=== PATIENT | male | born 1960 | race Caucasian/White ===

== ENCOUNTER 2017-09-03 06:25 | Day surgery (SDC) | payer BC ==
[2017-09-03] MEDS: LR 1,000 ML IV (07:12)
[2017-09-03] MEDS ORDERED: LIDOCAINE 2% INJ 100 MG/5 ML SDV (FOR ANES.) As Ordered ×2 (07:13→07:15)
[2017-09-03] MEDS ORDERED: MIDAZOLAM INJ 2 MG/2 ML VIAL (J2250) As Ordered (07:13)
[2017-09-03] MEDS ORDERED: PROPOFOL 200 MG/20 ML VIAL As Ordered ×5 (07:13→09:09)
[2017-09-03] MEDS ORDERED: fentaNYL 100 MCG/2 ML INJECTION (J3010) As Ordered (07:13)
[2017-09-03] MEDS ORDERED: KETAMINE HCL 200 MG/20 ML VIAL As Ordered (07:55)
[2017-09-03] MEDS: BUPIVACAINE HCL 0.25% 30 ML VIAL As Ordered (08:02)
[2017-09-03] MEDS: BUPIVACAINE HCL 0.5% 30 ML VIAL As Ordered (09:24)
[2017-09-03] MEDS: LIDOCAINE 1% SDV INJ 30 ML VIAL As Ordered (09:44)
== END 2017-09-03 10:47 | disposition home or self-care (01) ==
LOC: M SDC 06:25
DX: D17.1 Benign lipomatous neoplasm of skin and subcutaneous tissue of trunk (principal); I10 Essential (primary) hypertension; Z79.899 Other long term (current) drug therapy
CPT/HCPCS: 21933

== ENCOUNTER → 2019-05-12 | Outpatient (REF) | payer BC ==
[~2019-05-12] MED LIST: ASPI81TA26 PO; LISI10TA4; NIAC250T3 PO; ZINCLOZ9 PO
[2019-05-12 19:40] LABS: BASO % 0.2 % (0.0-1.0); EOS # 0.2 10^3/uL (0.0-0.5); EOS % 2.5 % (0.0-3.0); HEMATOCRIT 46.9 % (42.0-52.0); HEMOGLOBIN 16.1 g/dl (13.5-17.5); LYMPH # 1.3 10^3/uL (1.5-5.0); LYMPH % 14.7 % (24.0-44.0); MEAN CORPUSCULAR HEMOGLOBIN 32.7 pg (27.0-33.0); MEAN CORPUSCULAR HGB CONC 34.3 g/dl (32.0-36.5); MEAN CORPUSCULAR VOLUME 95.1 fl (80.0-96.0); MONO # 0.6 10^3/uL (0.0-0.8); MONO % 6.3 % (0.0-5.0); NEUTROPHILS # 6.7 10^3/uL (1.5-8.5); PLATELET COUNT, AUTOMATED 242 10^3/uL (150-450); RED BLOOD COUNT 4.93 10^6/uL (4.30-6.10); WHITE BLOOD COUNT 8.8 10^3/uL (4.0-10.0)
[2019-05-12 20:26] LABS: ALBUMIN 4.2 GM/DL (3.2-5.2); ALT/SGPT 40 U/L (12-78); BILIRUBIN,TOTAL 0.6 MG/DL (0.2-1.0); BLOOD UREA NITROGEN 19 MG/DL (7-18); CALCIUM LEVEL 10.1 MG/DL (8.8-10.2); CARBON DIOXIDE LEVEL 30 MEQ/L (21-32); CHLORIDE LEVEL 102 MEQ/L (98-107); CHOLESTEROL LEVEL 181 MG/DL (<200); CHOLESTEROL RISK RATIO 4.414 (<5); CREATININE FOR GFR 0.97 MG/DL (0.70-1.30); GLOMERULAR FILTRATION RATE > 60.0 (>49); GLUCOSE, FASTING 79 MG/DL (70-100); HDL CHOLESTEROL 41 MG/DL (>40); LDL CHOLESTEROL 94 MG/DL (<100); NON-HDL-C 140 MG/DL; POTASSIUM SERUM 4.2 MEQ/L (3.5-5.1); SODIUM LEVEL 139 MEQ/L (136-145); TOTAL PROTEIN 7.5 GM/DL (6.4-8.2); TRIGLYCERIDES LEVEL 231 MG/DL (<150)
== END ==
LOC: M SFHCADAM 15:19
PROVIDERS: ATTEND Physician Assistant Medical
DX: I10 Essential (primary) hypertension (principal); F17.290 Nicotine dependence, other tobacco product, uncomplicated; E83.119 Hemochromatosis, unspecified; K42.9 Umbilical hernia without obstruction or gangrene

== ENCOUNTER → 2019-06-26 | Outpatient (CLI) | payer BC ==
--- NOTE | 2019-06-26 20:53 | ECGEPIP ---
[facility] Test Date: 2019-06-26 Pat Name: SAW MAYFIELD Department: Room: - Gender: Male Sanitation Associate: EVER : 1960 Requested By: Fantasma Torrez Order Number: [id number] Reading MD: Asia Lemus Measurements Intervals Sullivan Rate: 68 P: 28 NH: 160 QRS: 34 QRSD: 104 T: 45 QT: 399 QTc: 424 Interpretive Statements SINUS RHYTHM NO PRIOR Electronically Signed on 06-26-2019 20:52:56 EST by Asia Lemus
== END ==
LOC: M EKG 09:36
PROVIDERS: ATTEND Anesthesiology
DX: I10 Essential (primary) hypertension (principal)

== ENCOUNTER 2019-06-29 09:03 | Day surgery (SDC) | payer BC ==
[~2019-06-29] VITALS: Ht 188 cm; Wt 121.3 kg
[~2019-06-29 09:03] MED LIST changes: +LIDOCAINE 2% INJ 100 MG/5 ML SDV (FOR ANES.) As Ordered ONE; +LR 1,000 ML IV ONE; +MIDAZOLAM INJ 2 MG/2 ML VIAL (J2250) As Ordered ONE; +ONDANSETRON 4MG/2ML VIAL (J2405) As Ordered ONE; +ROCURONIUM BROMIDE 50 MG/5 ML VIAL As Ordered ONE; +SUGAMMADEX SODIUM 500 MG/5 ML VIAL (BRIDION) As Ordered ONE; +dexameTHASONE 4 MG/ML 1ML VIAL (J1100) As Ordered ONE; +fentaNYL 250 MCG/5 ML INJECTION (J3010) As Ordered ONE; +propofoL 200 MG/20 ML VIAL As Ordered ONE
[2019-06-29] MEDS ORDERED: BUPIVACAINE HCL 0.25% 30 ML VIAL As Ordered ONE (11:29)
[2019-06-29] MEDS ORDERED: ACETAMINOPHEN 1000MG 100ML IV BTL (OFIRMEV) (J0131 PER 10MG) As Ordered ONE (12:19)
[2019-06-29] MEDS ORDERED: fentaNYL 100 MCG/2 ML INJECTION (J3010) IV PRN (15:00)
[2019-06-29] MEDS ORDERED: IBUPROFEN 600 MG TAB PO PRN (15:00)
[2019-06-29] MEDS ORDERED: NORCO, ANEXSIA 5/325MG TABLET (HYDROcodone/ACETAMINOPHEN) PO PRN (15:00)
[2019-06-29] MEDS ORDERED: ONDANSETRON 4MG/2ML VIAL (J2405) IV PRN (15:00)
[2019-06-29] MEDS ORDERED: LR 1,000 ML IV SCH (15:00)
[2019-06-29] MEDS ORDERED: oxyCODONE 5MG TAB PO PRN (15:00)
[2019-06-29] MEDS ORDERED: ACETAMINOPHEN TAB 650MG DOSE (2X325MG) PO PRN (15:00)
[2019-06-29 16:15] VITALS: BP 131/75
--- NOTE | 2019-06-30 13:07 | RO ---
DATE OF PROCEDURE: 06/29/2019 PREOPERATIVE DIAGNOSIS: Umbilical hernia. POSTOPERATIVE DIAGNOSIS: Incarcerated umbilical hernia. PROCEDURE PERFORMED: Robotic-assisted laparoscopic repair of incarcerated umbilical hernia with Parietex mesh. SURGEON: Dr. Xiong TRUCKING MANAGER: KHLOE Hinkle who was essential for management of the robotic instruments, passage of mesh and sutures and assistance with closure of the abdominal incisions. ANESTHESIA: General. INDICATIONS FOR PROCEDURE: Patient is a 58-year-old man with a history of a small bulge at the umbilicus. He is anticipating increasing his activity and trying to get back into shape and is concerned about the small hernia that is present. He also has a degree of diastasis recti present and he is now for a robotic-assisted laparoscopic repair of his hernia with mesh. OPERATIVE PROCEDURE: The patient was brought to the operating room and placed supine on the operating table. He was placed under general endotracheal anesthesia. TEDs and sequentials were utilized. The patient's abdomen was prepped and draped in a sterile fashion. 0.25% Marcaine was infiltrated at each of the trocar sites as needed. A short transverse incision was made in the lateral left abdomen at about the level of the umbilicus. A Veress needle was inserted and after positive hanging drop test, the abdomen was insufflated with carbon dioxide gas. After insufflating the abdomen, a 5 mm scope was placed through an 8 mm robotic port and this was advanced through the incision without difficulty. Initial examination showed a small frond of omentum protruding up into his umbilical hernia. This was adhesed in place. There was a fairly thick layer of preperitoneal fat in the area around and inferior to the umbilicus. A second 8 mm port was placed approximately 10 cm superior to the first and another was placed approximately 10 cm inferior to the first. The patient was tilted to a slight Trendelenburg position to level of the abdomen internally. The patient cart of the [employer] XI system was brought into position and the camera port was docked. Targeting took place and a bipolar cautery and a cauterizing scissor were inserted through the other two ports. I then moved to the control console to proceed with the surgery. I created a peritoneal flap beginning approximately 5-6 cm to the left of the midline. The peritoneum with the underlying preperitoneal fat was elevated off of the fascia. Dissection proceeded to the level of the umbilicus where the peritoneum was peeled from within the hernia defect. The primary defect was about 1.5 to 2 cm in size and there was of lobule of preperitoneal fat incarcerated within this. which was reduced. There were also two smaller adjacent fascial defects just above the primary defect. Each of these was perhaps a centimeter in size and these were from the main defect only by a perhaps 5 mm bridge of residual fibrous tissue. These also had entrapped fat and this was reduced. The preperitoneal dissection was then completed by extending across the midline and freeing the fascia all the way down to the semilunar line. I elected to attempt closure of the defects. It was clear that there would be some tension on the closure because the two defects were only by a small area. I incised the tissues just above the level of the fascia, working through each of the fascial defects, and I connected two smaller superior defects by incising between them. The pressure within the abdomen was reduced to approximately 10 mmHg. A 1-0 Stratafix suture was inserted and this was used to suture the larger defect trying to utilize as much of the fascia as possible that had extended up slightly into the defect to allow closure with slightly less tension. This closure was begun on the right side and then worked to the left and then working from [id number] the same suture was carried across, closing the superior defect. Because both defects were sutured to the thin band of tissue which had them, there was some tension on this area as anticipated. I then selected a 12-cm round Parietex patch. This was inserted and nicely covered the area of the sutured defects with a broad overlap. I had noted in clearing the fascia superiorly that there were at least two small transverse weaknesses in the fascia, no more than a centimeter in length and a few millimeters in width. This patch also nicely covered these identified areas. The patch was sutured first transversely and then circumferentially with 2-0 V-Loc sutures. This created a nice application of the mesh over the area. The peritoneum was then closed with another 2-0 V-Loc. While completing the closure and suturing of the mesh, the abdominal pressure was reduced to 8 mmHg. When the peritoneal closure was nearly complete, the pressure was reduced further to try to a prevent sealing large amount of gas anterior to the peritoneal closure. The robotic instruments were then removed and the abdomen deflated. The robot was undocked and the ports removed and the three small incisions were closed with buried 4-0 Vicryl and Steri-Strips. Light dressings were applied. The patient tolerated the procedure well without apparent complication. The mesh utilized was a 12-cm round Parietex patch, reference code [id number] and lot number [id number]. The patient was awakened in the operating room, extubated and moved to the recovery room in stable condition.
== END 2019-06-29 16:15 | disposition home or self-care (01) ==
LOC: M SDC 09:03
PROVIDERS: ATTEND Surgery
DX: K42.0 Umbilical hernia with obstruction, without gangrene (principal); I10 Essential (primary) hypertension; Z87.891 Personal history of nicotine dependence; E66.09 Other obesity due to excess calories; Z79.899 Other long term (current) drug therapy
CPT/HCPCS: 49653; C1781; J0131; J1100; J2250; J2405; J3010

== ENCOUNTER → 2022-11-03 | Outpatient (REF) | payer OTHER ==
[~2022-11-03] MED LIST changes: -LIDOCAINE 2% INJ 100 MG/5 ML SDV (FOR ANES.) As Ordered ONE; +LISI10TA22; -LISI10TA4; -LR 1,000 ML IV ONE; -MIDAZOLAM INJ 2 MG/2 ML VIAL (J2250) As Ordered ONE; -ONDANSETRON 4MG/2ML VIAL (J2405) As Ordered ONE; -ROCURONIUM BROMIDE 50 MG/5 ML VIAL As Ordered ONE; -SUGAMMADEX SODIUM 500 MG/5 ML VIAL (BRIDION) As Ordered ONE; -dexameTHASONE 4 MG/ML 1ML VIAL (J1100) As Ordered ONE; -fentaNYL 250 MCG/5 ML INJECTION (J3010) As Ordered ONE; -propofoL 200 MG/20 ML VIAL As Ordered ONE
[2022-11-03 14:43] LABS: BASO % 0.5 % (0.0-1.0); EOS # 0.1 10^3/uL (0.0-0.5); EOS % 1.9 % (0.0-3.0); HEMATOCRIT 47.5 % (42.0-52.0); HEMOGLOBIN 15.9 g/dl (13.5-17.5); LYMPH # 2.3 10^3/uL (1.5-5.0); LYMPH % 36.1 % (24.0-44.0); MEAN CORPUSCULAR HEMOGLOBIN 32.1 pg (27.0-33.0); MEAN CORPUSCULAR HGB CONC 33.5 g/dl (32.0-36.5); MONO # 0.5 10^3/uL (0.0-0.8); MONO % 7.2 % (2.0-8.0); NEUTROPHILS # 3.4 10^3/uL (1.5-8.5); PLATELET COUNT, AUTOMATED 231 10^3/uL (150-450); RED BLOOD COUNT 4.95 10^6/uL (4.30-6.10); WHITE BLOOD COUNT 6.4 10^3/uL (4.0-10.0)
[2022-11-03 14:53] LABS: ALBUMIN 3.9 G/DL (3.2-5.2); ALKALINE PHOSPHATASE 69 U/L (46-116); ALT/SGPT 30 U/L (7.0-40); AST/SGOT 12 U/L (<34); BILIRUBIN,TOTAL 0.7 MG/DL (0.3-1.2); BLOOD UREA NITROGEN 17 MG/DL (9-23); CALCIUM LEVEL 10.4 MG/DL (8.3-10.6); CARBON DIOXIDE LEVEL 28 MMOL/L (20-31); CHLORIDE LEVEL 104 MMOL/L (98-107); CHOLESTEROL LEVEL 173 MG/DL (<200); CHOLESTEROL RISK RATIO 3.72 (<5); CREATININE FOR GFR 1.01 MG/DL (0.70-1.30); GLOMERULAR FILTRATION RATE > 60.0 (>49); GLUCOSE, FASTING 79 MG/DL (74-106); HDL CHOLESTEROL 46.5 MG/DL (>40); LDL CHOLESTEROL 105.3 MG/DL (<100); NON-HDL-C 126.5 MG/DL; POTASSIUM SERUM 4.7 MMOL/L (3.5-5.1); SODIUM LEVEL 138 MMOL/L (136-145); TOTAL PROTEIN 6.7 G/DL (5.7-8.2); TRIGLYCERIDES LEVEL 106 MG/DL (<150)
[2022-11-03 14:55] LABS: THYROID STIMULATING HORMONE 2.422 uIU/ML (0.55-4.78)
== END ==
LOC: M SFHCADAM 07:35
PROVIDERS: ATTEND Physician Assistant Medical
DX: I10 Essential (primary) hypertension (principal); F17.290 Nicotine dependence, other tobacco product, uncomplicated; E83.119 Hemochromatosis, unspecified; E66.01 Morbid (severe) obesity due to excess calories

== ENCOUNTER 2024-06-21 17:54 | Emergency (ER) | payer MEDICARE, OTHER ==
[~2024-06-21] VITALS: Ht 190.5 cm; Wt 125.7 kg
[2024-06-21] MEDS ORDERED: IBUP-1022 PO (18:22)
[2024-06-21 19:48] LABS: BASO % 0.3 % (0.0-1.0); EOS # 0.1 10^3/uL (0.0-0.5); EOS % 1.7 % (0.0-3.0); HEMATOCRIT 46.1 % (42.0-52.0); HEMOGLOBIN 16.4 g/dl (13.5-17.5); LYMPH # 1.5 10^3/uL (1.5-5.0); MEAN CORPUSCULAR HGB CONC 35.6 g/dl (32.0-36.5); MONO # 0.5 10^3/uL (0.0-0.8); MONO % 7.4 % (2.0-8.0); NEUTROPHILS # 4.9 10^3/uL (1.5-8.5); NEUTROPHILS % 69.5 % (36.0-66.0); PLATELET COUNT, AUTOMATED 208 10^3/uL (150-450); RED BLOOD COUNT 5.12 10^6/uL (4.30-6.10)
[2024-06-21 20:38] LABS: APPEARANCE, URINE CLEAR (CLEAR); BACTERIA, URINE AUTO NEGATIVE (NEGATIVE); BILIRUBIN, URINE AUTO NEGATIVE (NEGATIVE); BLOOD, URINE BLOOD 1+ (NEGATIVE); COLOR, URINE YELLOW (YELLOW); GLUCOSE, URINE (UA) AUTO NEGATIVE (NEGATIVE); KETONE, URINE AUTO NEGATIVE (NEGATIVE); LEUKOCYTE ESTERASE, URINE AUTO NEGATIVE (NEGATIVE); NITRITE, URINE AUTO NEGATIVE (NEGATIVE); PROTEIN, URINE AUTO NEGATIVE (NEGATIVE); RBC, URINE AUTO 1 /HPF (0-3); SPECIFIC GRAVITY URINE AUTO 1.025 (1.002-1.035); SQUAMOUS EPITHELIAL CELL UR AU 0 /HPF (0-6); UROBILINOGEN, URINE AUTO 0.2 mg/dL (0.0-2.0); WBC, URINE AUTO 0 /HPF (0-3)
[2024-06-21 20:43] LABS: ALBUMIN 3.8 G/DL (3.2-5.2); BILIRUBIN,DIRECT 0.1 MG/DL (<0.4); BILIRUBIN,TOTAL 0.4 MG/DL (0.3-1.2); TOTAL PROTEIN 6.6 G/DL (5.7-8.2)
[2024-06-21 21:32] VITALS: BP 166/83; O2SAT 97
[2024-06-21] MEDS: ACETAMINOPHEN 500 MG TAB PO ONE (21:38)
[2024-06-21 21:43] VITALS: TEMP 97.9
== END 2024-06-21 21:45 | disposition home or self-care (01) ==
LOC: M ED 17:54
DX: R51.9 Headache, unspecified (principal); I10 Essential (primary) hypertension; Z87.891 Personal history of nicotine dependence; Z79.1 Long term (current) use of non-steroidal anti-inflammatories (NSAID); Z79.899 Other long term (current) drug therapy

== ENCOUNTER → 2025-04-17 | Outpatient (REF) | payer MEDICARE ==
[~2025-04-17] MED LIST changes: +IBUP600T42 PO; +LISI20TA35; +MONT10TA97
[2025-04-17 18:39] LABS: BASO # 0.0 10^3/uL (0.0-0.2); BASO % 0.6 % (0.0-1.0); EOS # 0.2 10^3/uL (0.0-0.5); EOS % 2.6 % (0.0-3.0); LYMPH # 2.6 10^3/uL (1.5-5.0); LYMPH % 37.7 % (24.0-44.0); MONO # 0.6 10^3/uL (0.0-0.8); MONO % 8.1 % (2.0-8.0); NEUTROPHILS # 3.5 10^3/uL (1.5-8.5); NEUTROPHILS % 50.9 % (36.0-66.0); PLATELET COUNT, AUTOMATED 270 10^3/uL (150-450)
[2025-04-17 18:57] LABS: PSA SCREENING 4.0 NG/ML (< 4.00)
[2025-04-17 19:01] LABS: ALT/SGPT 27.0 U/L (7.0-40); AST/SGOT 19.0 U/L (<34); CALCIUM LEVEL 10.7 MG/DL (8.3-10.6); CARBON DIOXIDE LEVEL 29.0 MMOL/L (20-31); CHLORIDE LEVEL 102.0 MMOL/L (98-107); CHOLESTEROL LEVEL 183.0 MG/DL (<200); CHOLESTEROL RISK RATIO 4.22 (<5); CREATININE FOR GFR 1.0 MG/DL (0.70-1.30); GLOMERULAR FILTRATION RATE 83.0 (>49); LDL CHOLESTEROL 108.1 MG/DL (<100); NON-HDL-C 139.7 MG/DL; POTASSIUM SERUM 4.4 MMOL/L (3.5-5.1); SODIUM LEVEL 139.0 MMOL/L (136-145); TRIGLYCERIDES LEVEL 158.0 MG/DL (<150)
[2025-04-17 19:39] LABS: ESTIMATED AVERAGE GLUCOSE 103.0 MG/DL (60-110)
== END ==
LOC: M SFHCADAM 11:57
PROVIDERS: ATTEND Physician Assistant Medical
DX: F17.290 Nicotine dependence, other tobacco product, uncomplicated (principal); I10 Essential (primary) hypertension; E66.01 Morbid (severe) obesity due to excess calories; E83.119 Hemochromatosis, unspecified; Z84.2 Family history of other diseases of the genitourinary system; Z12.5 Encounter for screening for malignant neoplasm of prostate
CPT/HCPCS: 80053; 80061; 82728; 83036; 84443; 85025; G0103